=== PATIENT | female | born 1955 | race Caucasian/White ===

== ENCOUNTER → 2017-05-21 | Outpatient (CLI) | payer BC ==
[2017-05-21 10:09] LABS: Basophils % (A) 0 %; CHCM 35.7; Eosinophils # (A) 0.1 k/uL (0-0.7); Eosinophils % (A) 2 %; HCT 41.5 % (34.0-46.0); HDW 3.01; HGB 14.7 gm/dL (11.4-16.0); Luc # (Auto) 0.06; Luc % (Auto) 1; Lymphocytes % (A) 24 %; MCHC 35.5 g/dL (31.0-37.0); MCV 90.2 fL (80.0-100.0); Mean Platelet Volume 7.8; Monocytes # (A) 0.2 k/uL (0-1.0); Monocytes % (A) 5 %; Neutrophils # (A) 2.8 k/uL (1.3-7.7); Neutrophils % (A) 68 %; RDW 13.6 % (11.5-15.5); WBC 4.1 k/uL (3.8-10.6); WBC (Perox) 3.91
[2017-05-21 14:14] LABS: ALT 26 U/L (9-52); AST 14 U/L (14-36); Alkaline Phosphatase 83 U/L (38-126); Anion Gap 10 mmol/L; Blood Urea Nitrogen 12 mg/dL (7-17); Calcium 9.3 mg/dL (8.4-10.2); Carbon Dioxide 26 mmol/L (22-30); Chloride 105 mmol/L (98-107); Glucose 93 mg/dL (74-99); Non-African American GFR(MDRD) >60 (>60 ml/min/1.73 sqM); Potassium 4.5 mmol/L (3.5-5.1); Sodium 141 mmol/L (137-145); Total Bilirubin 0.4 mg/dL (0.2-1.3); Total Protein 6.8 g/dL (6.3-8.2)
[2017-05-21 14:56] LABS: Estradiol 14 pg/mL
[2017-05-21 15:11] LABS: Vitamin B12 953 pg/mL (239-931)
[2017-05-21 15:29] LABS: Sex Hormone Binding Globulin 55.4 nmol/L (18.0-166.0)
[2017-05-21 15:33] LABS: Testosterone, Bioavailable 14.1 ng/dL (1.2-15.0); Testosterone, Free 0.6 ng/dL (0.04-0.53)
== END | disposition home or self-care (01) ==
LOC: LABWHC1 09:38
PROVIDERS: ATTEND Obstetrics & Gynecology
DX: E55.9 Vitamin D deficiency, unspecified (principal); R53.83 Other fatigue; Z78.0 Asymptomatic menopausal state
CPT/HCPCS: 36415; 80053; 82040; 82306; 82607; 82670; 84270; 84403; 84439; 84443; 84481; 85025

== ENCOUNTER 2017-09-04 19:32 | Observation (INO) | payer BC ==
[2017-09-04] MEDS ORDERED: SODIUM CHLORIDE 0.9% 1,000 ML IV STA (19:55)
--- NOTE | 2017-09-04 20:01 | ED ---
Dizziness HPI - General Chief Complaint: Syncope Stated Complaint: near syncope Time Seen by Provider: 09/04/17 19:49 Source: patient Mode of arrival: EMS Limitations: no limitations - History of Present Illness Initial Comments: Oximetry 2 years old female after finishing her dinner tonight she went to the bathroom when she got back from the bathroom she felt very dizzy and on 12 she fell she is given a pass out but she did not pass out she calls a 911 felt quite shaky and felt heart was racing. She denies any headaches no neck stiffness no chest pain no shortness of breath no abdominal pain no frequency urgency dysuria no symptoms of TIA or CVA - Related Data Home Medications Medication Instructions Recorded Confirmed Biest Topical Cream 1 applic TOPICAL DAILY 09/04/17 09/04/17 Cholecalciferol [Vitamin D3] 1,000 unit PO DAILY 09/04/17 09/04/17 Digestive Enzymes 1 tab PO DAILY 09/04/17 09/04/17 Phytonadione [Vitamin K] 5 mg PO DAILY 09/04/17 09/04/17 Progesterone 150mg 150 mg PO DAILY 09/04/17 09/04/17 Thyroid,Pork [Nature-Throid] 48.75 mg PO DAILY 09/04/17 09/04/17 Allergies Allergy/AdvReac Type Severity Reaction Status Date / Time codeine Allergy Mild Rash/Hives Verified 09/04/17 19:50 Review of Systems ROS Statement: Those systems with pertinent positive or pertinent negative responses have been documented in the HPI. ROS Other: All systems not noted in ROS Statement are negative. Past Medical History Additional Past Medical History / Comment(s): vertigo History of Any Multi-Drug Resistant Organisms: None Reported Past Surgical History: Hernia Repair Past Psychological History: No Psychological Hx Reported Smoking Status: Never smoker Past Alcohol Use History: None Reported Past Drug Use History: None Reported General Exam - General Exam Comments Initial Comments: General: The patient is awake and alert, in no distress, and does not appear acutely ill. GCS is 15 she does look pale and anxious Skin: Skin is warm and dry and no rashes or lesions are noted. Eye: Pupils are equal, round and reactive to light, extra-ocular movements are intact; there is normal conjunctiva bilaterally. Ears, nose, mouth and throat: There are moist mucous membranes and no oral lesions. Neck: The neck is supple, there is no tenderness or JVD. Cardiovascular: There is a regular rate and rhythm. No murmur, rub or gallop is appreciated. Respiratory: To auscultation bilateral, no wheezing no rhonchi no distress respiratory matamoros noticed Gastrointestinal: Soft, non-distended, non-tender abdomen without masses or organomegaly noted. There is no rebound or guarding present. Bowel sounds are unremarkable. Back: There is no tenderness to palpation in the midline. There is no obvious deformity. Musculoskeletal: Normal ROM, no tenderness, There is no pedal edema. There is no calf tenderness or swelling. No cords were appreciated. Neurological: CN II-XII intact, Cranial nerves III through XII are intact. There are no obvious motor or sensory deficits. Coordination appears grossly intact. Speech is normal. Psychiatric: Cooperative, appropriate mood & affect, normal judgment. Limitations: no limitations Course Vital Signs 09/04/17 09/04/17 09/04/17 19:36 20:13 21:20 Temperature 98.1 F Pulse Rate 104 H 101 H 95 Respiratory 16 18 18 Rate Blood Pressure 155/86 153/70 113/53 O2 Sat by Pulse 96 98 98 Oximetry She was reassessed at 2130, head CT is normal so is the troponin urinalysis CBC compressive metabolic panel and I on INR, clinically she is not hasn't improved much she still quite dizzy and unsteady gait she does have history of vertigo for years but she feels this time it's it some more severe considering her clinical picture would like to observe her overnight and a consult neurology will consult Dr. howard ybarra to see her in the meantime we'll monitor her overnight palpation of the family agreed to EKG Findings - EKG Comments: EKG Findings:: EKG is normal sinus rhythm, ventricular rate is 91 NE interval is 168 QRS duration is 80 QT/QTc is 344/02/16/2020 review of this EKG reveals T- wave inversion in lead [address] depression in V3, it looks more like artifact no other ST elevation or ST depression noticed in this EKG noticed a PVC as well Medical Decision Making - Lab Data Result diagrams: 09/04/17 20:10 09/04/17 20:10 Lab Results 09/04/17 09/04/17 09/04/17 Range/Units 20:10 20:10 20:10 WBC 6.8 (3.8-10.6) k/uL RBC 5.06 (3.80-5.40) m/uL Hgb 15.5 (11.4-16.0) gm/dL Hct 44.8 (34.0-46.0) % MCV 88.5 (80.0-100.0) fL MCH 30.7 (25.0-35.0) pg MCHC 34.7 (31.0-37.0) g/dL RDW 14.4 (11.5-15.5) % Plt Count 154 (150-450) k/uL Neutrophils % 72 % Lymphocytes % 22 % Monocytes % 4 % Eosinophils % 1 % Basophils % 0 % Neutrophils # 4.9 (1.3-7.7) k/uL Lymphocytes # 1.5 (1.0-4.8) k/uL Monocytes # 0.3 (0-1.0) k/uL Eosinophils # 0.1 (0-0.7) k/uL Basophils # 0.0 (0-0.2) k/uL PT (9.0-12.0) sec INR (<1.2) APTT (22.0-30.0) sec Sodium 140 (137-145) mmol/L Potassium 4.1 (3.5-5.1) mmol/L Chloride 105 (98-107) mmol/L Carbon Dioxide 25 (22-30) mmol/L Anion Gap 10 mmol/L BUN 15 (7-17) mg/dL Creatinine 0.70 (0.52-1.04) mg/dL Est GFR (MDRD) Af Amer >60 (>60 ml/min/1.73 sqM) Est GFR (MDRD) Non-Af >60 (>60 ml/min/1.73 sqM) Glucose 116 H (74-99) mg/dL Calcium 9.5 (8.4-10.2) mg/dL Total Bilirubin 0.4 (0.2-1.3) mg/dL AST 20 (14-36) U/L ALT 24 (9-52) U/L Alkaline Phosphatase 94 (38-126) U/L Total Creatine Kinase 57 (30-135) U/L CK-MB (CK-2) 0.6 (0.0-2.4) ng/mL CK-MB (CK-2) Rel Index 1.1 Troponin I <0.012 (0.000-0.034) ng/mL Total Protein 7.4 (6.3-8.2) g/dL Albumin 4.6 (3.5-5.0) g/dL Urine Color Urine Appearance (Clear) Urine pH (5.0-8.0) Ur Specific [place] (1.001-1.035) Urine Protein (Negative) Urine Glucose (UA) (Negative) Urine Ketones (Negative) Urine Blood (Negative) Urine Nitrite (Negative) Urine Bilirubin (Negative) Urine Urobilinogen (<2.0) mg/dL Ur Leukocyte Esterase (Negative) Urine RBC (0-5) /hpf Urine WBC (0-5) /hpf Ur Squamous Epith Cells (0-4) /hpf Urine Mucus (None) /hpf 09/04/17 09/04/17 Range/Units 20:10 20:10 WBC (3.8-10.6) k/uL RBC (3.80-5.40) m/uL Hgb (11.4-16.0) gm/dL Hct (34.0-46.0) % MCV (80.0-100.0) fL MCH (25.0-35.0) pg MCHC (31.0-37.0) g/dL RDW (11.5-15.5) % Plt Count (150-450) k/uL Neutrophils % % Lymphocytes % % Monocytes % % Eosinophils % % Basophils % % Neutrophils # (1.3-7.7) k/uL Lymphocytes # (1.0-4.8) k/uL Monocytes # (0-1.0) k/uL Eosinophils # (0-0.7) k/uL Basophils # (0-0.2) k/uL PT 10.4 (9.0-12.0) sec INR 1.0 (<1.2) APTT 24.5 (22.0-30.0) sec Sodium (137-145) mmol/L Potassium (3.5-5.1) mmol/L Chloride (98-107) mmol/L Carbon Dioxide (22-30) mmol/L Anion Gap mmol/L BUN (7-17) mg/dL Creatinine (0.52-1.04) mg/dL Est GFR (MDRD) Af Amer (>60 ml/min/1.73 sqM) Est GFR (MDRD) Non-Af (>60 ml/min/1.73 sqM) Glucose (74-99) mg/dL Calcium (8.4-10.2) mg/dL Total Bilirubin (0.2-1.3) mg/dL AST (14-36) U/L ALT (9-52) U/L Alkaline Phosphatase (38-126) U/L Total Creatine Kinase (30-135) U/L CK-MB (CK-2) (0.0-2.4) ng/mL CK-MB (CK-2) Rel Index Troponin I (0.000-0.034) ng/mL Total Protein (6.3-8.2) g/dL Albumin (3.5-5.0) g/dL Urine Color Yellow Urine Appearance Clear (Clear) Urine pH 5.5 (5.0-8.0) Ur Specific [place] 1.018 (1.001-1.035) Urine Protein Negative (Negative) Urine Glucose (UA) Negative (Negative) Urine Ketones Negative (Negative) Urine Blood Trace H (Negative) Urine Nitrite Negative (Negative) Urine Bilirubin Negative (Negative) Urine Urobilinogen <2.0 (<2.0) mg/dL Ur Leukocyte Esterase Negative (Negative) Urine RBC 1 (0-5) /hpf Urine WBC <1 (0-5) /hpf Ur Squamous Epith Cells 1 (0-4) /hpf Urine Mucus Occasional H (None) /hpf Disposition Clinical Impression: Dizziness Disposition: ADMITTED IP TO THIS HOSP Condition: Good Referrals: Natalie Sommers DO [Primary Care Provider] - 1-2 days
[2017-09-04] MEDS ORDERED: METOCLOPRAMIDE 5 MG/ML 2 ML VIAL IVP STA (20:04)
[2017-09-04 20:23] LABS: Basophils % (A) 0 %; CH 31.2; CHCM 35.4; Eosinophils # (A) 0.1 k/uL (0-0.7); Eosinophils % (A) 1 %; HCT 44.8 % (34.0-46.0); HDW 2.85; HGB 15.5 gm/dL (11.4-16.0); Luc # (Auto) 0.09; Luc % (Auto) 1; Lymphocytes # (A) 1.5 k/uL (1.0-4.8); Lymphocytes % (A) 22 %; MCH 30.7 pg (25.0-35.0); MCHC 34.7 g/dL (31.0-37.0); MCV 88.5 fL (80.0-100.0); Mean Platelet Volume 7.4; Monocytes # (A) 0.3 k/uL (0-1.0); Monocytes % (A) 4 %; Neutrophils # (A) 4.9 k/uL (1.3-7.7); Neutrophils % (A) 72 %; RBC 5.06 m/uL (3.80-5.40); RDW 14.4 % (11.5-15.5); WBC 6.8 k/uL (3.8-10.6); WBC (Perox) 6.94
[2017-09-04 20:26] LABS: Appearance,Urine Clear (Clear); Bilirubin,Urine Negative (Negative); Glucose,Urine (UA) Negative (Negative); Ketones,Urine Negative (Negative); Leukocyte Esterase,Urine Negative (Negative); Mucus,Urine Occasional /hpf; Nitrite,Urine Negative (Negative); PH, Urine 5.5 (5.0-8.0); Particle Count 3507; Protein,Urine Negative (Negative); RBC,Urine 1 /hpf (0-5); Specific Gravity,Urine 1.018 (1.001-1.035); Squamous Epithelial Cell,Urine 1 /hpf (0-4); UA Billing (MACRO vs. MICRO) MICRO; Urobilinogen,Urine <2.0 mg/dL (<2.0); WBC,Urine <1 /hpf (0-5)
[2017-09-04 20:32] LABS: Partial Thromboplastin Time 24.5 sec (22.0-30.0); Prothrombin Time 10.4 sec (9.0-12.0)
[2017-09-04 20:36] LABS: ALT 24 U/L (9-52); AST 20 U/L (14-36); Alkaline Phosphatase 94 U/L (38-126); Anion Gap 10 mmol/L; Blood Urea Nitrogen 15 mg/dL (7-17); Calcium 9.5 mg/dL (8.4-10.2); Carbon Dioxide 25 mmol/L (22-30); Chloride 105 mmol/L (98-107); Glucose 116 mg/dL (74-99); Non-African American GFR(MDRD) >60 (>60 ml/min/1.73 sqM); Potassium 4.1 mmol/L (3.5-5.1); Sodium 140 mmol/L (137-145); Total Bilirubin 0.4 mg/dL (0.2-1.3); Total Protein 7.4 g/dL (6.3-8.2)
[2017-09-04 20:39] LABS: Creatine Kinase 57 U/L (30-135)
[2017-09-04 20:52] LABS: Troponin I <0.012 ng/mL (0.000-0.034)
--- NOTE | 2017-09-04 21:08 | CT ---
EXAMINATION TYPE: CT brain wo con DATE OF EXAM: 09/04/2017 COMPARISON: NONE HISTORY: Dizziness. CT DLP: [address] of the brain was performed. The ventricles, basal cisterns and sulci overlying the cerebral convexities demonstrate mild enlargem ent. There is no evidence for intracranial hemorrhage or sulcal effacement. There is decreased attenuation about the periventricular white matter and deep white matter of both c erebral hemispheres, compatible with chronic small vessel ischemia. Differential diagnosis does inclu de demyelination. No mass effects are seen.No midline shift. Osseous calvarium is intact. If symptoms persist consider MRI. IMPRESSION: 1. Age related atrophic and chronic small vessel ischemic change without acute intracranial process s een at this time.
--- NOTE | 2017-09-04 21:13 | XR ---
EXAMINATION TYPE: XR chest 2V DATE OF EXAM: 09/04/2017 COMPARISON: NONE HISTORY: Shortness of breath TECHNIQUE: Frontal and lateral views of the chest are obtained. FINDINGS: Scattered senescent parenchymal changes noted. Hyperinflation compatible with COPD. No evidence for infiltrate. No evidence for atelectasis. Heart size is stable. Mediastinal structures are stable and grossly unremarkable. No evidence for hilar prominence. Degenerative changes dorsal spine. IMPRESSION: 1. No evidence for acute pulmonary disease.
[2017-09-04 21:21] LABS: Creatine Kinase MB 0.6 ng/mL (0.0-2.4)
[2017-09-04] MEDS ORDERED: ACETAMINOPHEN TAB 325 MG TAB PO PRN (21:33)
[2017-09-04] MEDS ORDERED: NALOXONE 0.4 MG/ML 1 ML VIAL IV PRN (21:33)
[2017-09-04] MEDS ORDERED: ASPIRIN 81 MG PO STA (21:46)
[2017-09-04] MEDS ORDERED: MECLIZINE 25 MG TAB PO PRN (21:47)
[2017-09-04] MEDS ORDERED: MECLIZINE 25 MG TAB PO STA (21:47)
[2017-09-04 22:45] VITALS: BMI 20.9
[2017-09-05] MEDS ORDERED: DIGESTIVE ENZYMES PO SCH (09:00)
[2017-09-05] MEDS: THYROID PORK 48.75 MG PO SCH (11:36)
[2017-09-05] MEDS: BIEST TOPICAL SCH (11:36)
[2017-09-05] MEDS: CHOLECALCIFEROL 1,000 UNIT TAB PO SCH (12:30)
--- NOTE | 2017-09-05 16:32 | HP ---
HISTORY AND PHYSICAL DATE OF ADMISSION: 09/05/2017 CHIEF COMPLAINT: Altered mental status and dizziness. HISTORY OF PRESENT ILLNESS: This is a 62-year-old female with past medical history of mercury poisoning, benign positional vertigo, MTHFR gene mutation and diverticulosis, who presents to the emergency room after having an episode of vertigo, dizziness, altered mental status and ataxic gait that came on suddenly. The patient said that she was out having dinner with her . She was eating whitefish. After consuming her meal, the patient had gotten up to go to the restroom and as she was in the restroom, the patient was washing her hands and noticed that she was leaning over to the left side. She became suddenly dizzy in which she described the room was spinning around her. The patient does have a history of benign positional vertigo and states that this vertigo was different than all the rest of them that she has experienced in the past. She immediately came out in the parking lot. She had to ask her to help her walk, as she was leaning. He had to support her and he brought her into the emergency room for further evaluation. Per the family members who were at bedside, the patient's mentation was also altered. She was noted to be repeating herself many times over. She showed signs of confusion. The patient did not recall texting her friend yesterday after she learned that she had been texting people last night. The patient states that she had recently got multiple dental work done at a homeopathic dentist using dental fillings that are high in mercury. The patient is known to have high mercury level and was recommended and advised for chelation therapy which the patient was supposed to have done 3 weeks ago. However, she decided on more conservative management with and supplementations. The patient was seen at the bedside. Daughter was at bedside, states that her mentation this morning is more at her baseline. The patient does not remember much of the events of the day prior after dinner. The patient denied having any tingling or numbness in her fingers or extremities. She denied any headaches. She denied any changes in her vision or hearing. The patient had no change in the quality of her speech. Patient did not exhibit any unilateral weakness. She denies any chest pain or shortness of breath. When examined at the bedside, the patient's symptoms have all resolved. PAST MEDICAL HISTORY: 1. Benign positional vertigo. 2. Mercury poisoning. 3. MTHFR gene mutation. 4. Diverticulosis. PAST SURGICAL HISTORY: 1. D and C. 2. Hiatal hernia repair. 3. Multiple dental caries with wisdom teeth extraction. FAMILY HISTORY: MTHFR gene mutation, coronary artery disease in her parents, cardiovascular artery disease. Mom had a stroke at 42, also diabetic. ALLERGIES: PATIENT IS ALLERGIC TO CODEINE AND TALWIN. HOME MEDICATIONS: 1. Acetaminophen 650 every 6 hours as needed. 2. Calciferol. 3. Vitamin D3 1000 units. 4. Meclizine 25 mg p.o. t.i.d. p.r.n. 5. Reglan. 6. She is Nature Throid 48.75. 7. She is on progesterone 150 mg p.o. daily. 8. She is on vitamin K 5 mg daily. 9. She is on estradiol. SOCIAL HISTORY: The patient has never smoked. Denies any alcohol use or any IV drug abuse. The patient is retired for the past 2 years. REVIEW OF SYSTEMS: Except as mentioned above, all systems are reviewed and are negative. PHYSICAL EXAM: OBJECTIVE: VITAL SIGNS: The patient's temperature 98.3, pulse 79, respirations 16, blood pressure 110/59, oxygen saturation 97% on room air. GENERAL: This is a 62-year-old female who is awake, alert, oriented x3. No acute distress. Nontoxic. She is calm and cooperative. SKIN: [place], warm, and dry. HEENT: She is normocephalic, atraumatic. Pupils are equal, round, reactive to light. There is a slight discoloration of her iris bilaterally with brown pigmentation overlying blue hue. Sclerae are pink. Conjunctivae white. Extraocular muscles are intact. NECK: Supple. No lymphadenopathy. Trachea midline. CARDIOVASCULAR: Regular rate and rhythm. No murmurs, rubs or gallops. No carotid bruits. No lower extremity edema. RESPIRATION: Clear to auscultation bilaterally. No wheezing, rales or rhonchi. Symmetric chest wall expansion. No use of accessory muscle respiration. GI: Abdomen soft, nontender, nondistended. Positive bowel sounds in all 4 quadrants. MUSCULOSKELETAL: Patient moves all extremities with equal strength and good range of motion, 5/5. No observed effusions or joint enlargements. NEUROLOGICAL: Cranial nerves 2-12 grossly intact. No focal deficits. Face is symmetrical and clear. No droop. No dysarthria. PSYCHIATRIC: There is no depression or anxiety noted. LABORATORY DATA: White count 6.8, hemoglobin 15.5, hematocrit 44.8, platelets 154. Chem: Sodium 140, potassium 4.1, chloride 105, carbon dioxide 25, glucose 116. IMPRESSION: 1. Dizziness and vertigo with altered mental status. 2. Mercury poisoning. 3. Recent exposure to mercury. 4. Postmenopausal state. 5. History of migraines. 6. History of benign positional vertigo. 7. History of migraines. PLAN: Patient to remain on observation unit. The patient is pending evaluation by Neurology. The patient should pursue chelation therapy; however, mercury levels should be obtained prior hand. Patient to remain a fall risk. Continue with cardiac diet. The patient to have orthostatics q. shift. The patient to initiate DVT and GI prophylaxis as per protocol. She will continue home medications. Continue with antiemetics. Further recommendations to follow, pending interval progress. Patient's limited laboratory data in the morning will be checked to include a TSH. MMODL / IJN: [id number] /
[2017-09-05] MEDS ORDERED: ALPRAZolam 0.25 MG TAB PO STA (18:41)
--- NOTE | 2017-09-05 19:17 | P.CNNES ---
History of Present Illness Consult date: 09/05/17 History of Present Illness: The patient is a 62-year-old right-handed white female with a long-standing history of positional vertigo. She states she suffered from positional vertigo all of her adult life. She states that what happened yesterday was different from her usual vertigo. She states she felt a lightheadedness but no vertigo. She was at a restaurant and was going to the restroom and after coming out and walking out of the restroom she felt lightheadedness and she felt like she was got a past out. She told her and he had to hold her. He got her eventually to the car and she told him to call 911. She states she felt fogginess in her thinking wasn't as clear. She was brought by EMS to the hospital and by the time she got into the EMS van her lightheadedness that resolved but she felt a slowness in her cognitive abilities. That lasted for about 3 hours. She reports that she is felt that she has been dehydrated. She hasn't been drinking water as much as been drinking more coffee. She states that she is on numerous some supplements and there is no change in her medications or supplements. Patient denies any neurologic complaints such as double vision focal weakness or numbness or's spell loss of speech. She reports that she has seen in homeopathic doctor and that she is reportedly has high levels of movement metal in her body. She was supposed to have Chelation therapy several weeks ago. The patient feels back to her baseline now. Review of Systems Constitutional: Denies chills, Denies fever Eyes: denies blurred vision, denies pain Cardiovascular: Denies chest pain, Denies shortness of breath Respiratory: Denies cough Musculoskeletal: Denies myalgias Neurological: Denies numbness, Denies weakness Psychiatric: Denies anxiety, Denies depression Past Medical History Past Medical History: Thyroid Disorder Additional Past Medical History / Comment(s): vertigo, ARRYTHMIA DURING A SURGICAL PROCEDURE, LOW THYROID, DIVERTICULOUSIS History of Any Multi-Drug Resistant Organisms: None Reported Past Surgical History: Hernia Repair Additional Past Surgical History / Comment(s): 5 D&C, HERNIA REPAIR , STRESS TEST 3-4 YEARS AGO IT WAS NORMAL, Past Psychological History: No Psychological Hx Reported Smoking Status: Never smoker Past Alcohol Use History: None Reported Past Drug Use History: None Reported - Past Family History Mother Family Medical History: Hypertension Additional Family Medical History / Comment(s): STROKE HTN, SKIN CA, HEART MURMER Father Family Medical History: Hypertension Additional Family Medical History / Comment(s): DIVERTICULOUSIS, Brother(s) Family Medical History: Diabetes Mellitus Additional Family Medical History / Comment(s): ALL HER BROTHERS AND SISITERS HAVE DIABETES, BROTHER HAS HEART CONDITION, Medications and Allergies Home Medications Medication Instructions Recorded Confirmed Type ALPRAZolam [Xanax] 1 mg PO TID PRN 09/04/17 09/04/17 History Biest Topical Cream 1 applic TOPICAL DAILY 09/04/17 09/04/17 History Digestive Enzymes 1 tab PO DAILY 09/04/17 09/04/17 History Progesterone 150mg 150 mg PO DAILY 09/04/17 09/04/17 History Thyroid,Pork [Nature-Throid] 48.75 mg PO DAILY 09/04/17 09/04/17 History Allergies Allergy/AdvReac Type Severity Reaction Status Date / Time codeine Allergy Mild Rash/Hives Verified 09/04/17 19:50 TALWIN AdvReac Hallucinati Uncoded 09/04/17 22:52 ons Physical Examination - Vital Signs Vital Signs: Vital Signs Temp Pulse Pulse Resp BP BP Pulse Ox 09/05/17 15:27 98.7 F 70 16 136/62 97 09/05/17 12:00 98.3 F 79 16 110/59 97 09/05/17 08:00 98.6 F 80 16 115/59 97 09/05/17 07:40 100 09/05/17 04:50 98.1 F 90 18 123/57 97 09/05/17 00:34 98.4 F 102 H 16 145/71 09/04/17 22:01 99.1 F 09/04/17 21:49 18 09/04/17 21:20 95 18 113/53 98 09/04/17 20:13 101 H 18 153/70 98 09/04/17 19:36 98.1 F 104 H 16 155/86 96 Intake and Output 09/05/17 09/05/17 09/05/17 06:59 14:59 22:59 Intake Total 236 Balance 236 Intake: Oral 236 Other: Voiding Method Toilet Toilet - Constitutional General appearance: average body habitus - EENT EENT: PERRL, hearing intact, vision intact - Respiratory Respiratory: lungs clear - Cardiovascular Cardiovascular: regular rate - Neurologic Mental status: She was awake alert and oriented . She answered questions appropriately there was no a aphasia or dysarthria. Cranial nerve examination: PERRL, EOMI, VFF, face symmetric, tongue midline, intact Speech examination: intact Detailed motor examination: grossly full strength in all extremities - Psychiatric Psychiatric: mood/affect appropriate Results - Laboratory Findings CBC and BMP: 09/04/17 20:10 09/04/17 20:10 Abnormal Lab Findings: Abnormal Labs 09/04/17 09/04/17 20:10 20:10 Glucose 116 H Urine Blood Trace H Urine Mucus Occasional H Assessment and Plan (1) Pre-syncope Current Visit: Yes Status: Acute SNOMED Code(s): 898967112 (2) Dizziness Current Visit: Yes Status: Acute SNOMED Code(s): 714946842 Plan: The patient is a 62-year-old woman with history of benign positional vertigo presents to the hospital with dizziness and near syncope. Her neurologic examination is nonfocal. She had a CT of the brain which showed age-related atrophy. Recommend further testing with carotid ultrasound and echocardiogram. Her near syncope may have been vasovagal.
[2017-09-05 19:57] VITALS: RESP 18
--- NOTE | 2017-09-05 21:44 | US ---
EXAMINATION TYPE: US carotid duplex BILAT DATE OF EXAM: 09/05/2017 COMPARISON: NONE CLINICAL HISTORY: Presyncope. Dizziness EXAM MEASUREMENTS: RIGHT: Peak Systolic Velocity (PSV) cm/sec ----- Right CCA: 75.7 ----- Right ICA: 102.1 ----- Right ECA: 109.7 ICA/CCA ratio: 1.3 RIGHT: End Diastole cm/sec ----- Right CCA: 15.3 ----- Right ICA: 8.9 ----- Right ECA: 0 LEFT: Peak Systolic Velocity (PSV) cm/sec ----- Left CCA: 70.7 ----- Left ICA: 95.1 ----- Left ECA: 96.9 ICA/CCA ratio: 1.3 LEFT: End Diastole cm/sec ----- Left CCA: 15.6 ----- Left ICA: 17.6 ----- Left ECA: 11.5 VERTEBRALS (direction of flow): Right Vertebral: Antegrade Left Vertebral: Antegrade Rhythm: Normal No significant stenosis seen IMPRESSION: There is antegrade flow in the vertebral arteries. The images and measurements suggest 2 5-40% stenosis in both internal carotid arteries. Criteria for Assigning % of Stenosis / Diameter reduction (Estimation based on the indirect measurements of the internal carotid artery velocities (ICA PSV). 1. Normal (no stenosis)=ICA PSV < 125 cm/s: ratio < 2.0: ICA EDV<40 cm/s. 2. Less than 50% stenosis=ICA PSV < 125 cm/s: ratio < 2.0: ICA EDV<40 cm/s. 3. 50 to 69% stenosis=ICA PSV of 125 to 230 cm/s: ration 2.0 ? 4.0: ICA EDV 40-100 cm/s. 4. Greater than 70% stenosis to near occlusion= ICA PSV > 230 cm/s: ratio > 4.0: ICA EDV > 100 cm/s. 5. Near occlusion= ICA PSV velocities may be low or undetectable: variable ratio and ICA EDV. 6. Total occlusion=unable to detect flow.
[2017-09-06 06:58] LABS: Basophils % (A) 1 %; CH 31.5; CHCM 34.9; Eosinophils # (A) 0.1 k/uL (0-0.7); Eosinophils % (A) 3 %; HCT 41.3 % (34.0-46.0); HDW 3.04; HGB 13.8 gm/dL (11.4-16.0); Luc # (Auto) 0.05; Luc % (Auto) 1; Lymphocytes # (A) 1.1 k/uL (1.0-4.8); Lymphocytes % (A) 30 %; MCH 30.2 pg (25.0-35.0); MCHC 33.3 g/dL (31.0-37.0); MCV 90.7 fL (80.0-100.0); Mean Platelet Volume 6.8; Monocytes # (A) 0.2 k/uL (0-1.0); Monocytes % (A) 6 %; Neutrophils # (A) 2.2 k/uL (1.3-7.7); Neutrophils % (A) 60 %; RBC 4.55 m/uL (3.80-5.40); RDW 12.8 % (11.5-15.5); WBC 3.7 k/uL (3.8-10.6); WBC (Perox) 3.62
[2017-09-06 07:11] LABS: Anion Gap 6 mmol/L; Blood Urea Nitrogen 13 mg/dL (7-17); Calcium 9.1 mg/dL (8.4-10.2); Carbon Dioxide 28 mmol/L (22-30); Chloride 108 mmol/L (98-107); Glucose 88 mg/dL (74-99); Magnesium 1.9 mg/dL (1.6-2.3); Non-African American GFR(MDRD) >60 (>60 ml/min/1.73 sqM); Potassium 4.3 mmol/L (3.5-5.1); Sodium 142 mmol/L (137-145)
[2017-09-06] MEDS: BIEST TOPICAL SCH (08:39)
[2017-09-06] MEDS: THYROID PORK 48.75 MG PO SCH (08:39)
[2017-09-06 11:38] VITALS: TEMP 98.1
[2017-09-06] MEDS: CHOLECALCIFEROL 1,000 UNIT TAB PO SCH (12:24)
--- NOTE | 2017-09-06 12:37 | ECHOF ---
Referral Reason:presyncope MEASUREMENTS -------- HEIGHT: 162.6 cm WEIGHT: 86.2 kg BP: RVIDd: 2.3 cm (< 3.3) IVSd: 1.0 cm (0.6 - 1.1) LVIDd: 4.0 cm (3.9 - 5.3) LVPWd: 0.9 cm (0.6 - 1.1) IVSs: 1.2 cm LVIDs: 3.1 cm LVPWs: 1.0 cm LA Diam: 1.9 cm (2.7 - 3.8) Ao Diam: 2.9 cm (2.0 - 3.7) AV Cusp: 1.9 cm (1.5 - 2.6) LA Diam: 3.0 cm (2.7 - 3.8) MV EXCURSION: 13.536 mm (> 18.000) MV EF SLOPE: 90 mm/s (70 - 150) EPSS: 0.3 cm MV E Jose: 0.96 m/s MV DecT: 142 ms MV A Jose: 0.25 m/s MV E/A Ratio: 3.86 RAP: 5.00 mmHg RVSP: 12.14 mmHg FINDINGS -------- Sinus rhythm. This was a technically adequate study. LV size, wall thickness and systolic function are normal, with an EF greater than 55%. The left joseph tricular size is normal. The right ventricle is normal in size. Normal LA size by volume 22+/-6 ml/m2. The right atrial size is normal. The aortic valve is trileaflet, and appears structurally normal. No aortic stenosis or regurgitation. The mitral valve is normal. Mild mitral regurgitation is present. Mild tricuspid regurgitation present. There is no evidence of pulmonary hypertension. The right v entricular systolic pressure, as measured by Doppler, is 12.14mmHg. The pulmonic valve was not well visualized. There is no pulmonic regurgitation present. There is no pericardial effusion. CONCLUSIONS -------- 1. Sinus rhythm. 2. This was a technically adequate study. 3. LV size, wall thickness and systolic function are normal, with an EF greater than 55%. 4. Normal LA size by volume 22+/-6 ml/m2. 5. The aortic valve is trileaflet, and appears structurally normal. No aortic stenosis or regurgitati on. 6. Mild mitral regurgitation is present. 7. Mild tricuspid regurgitation present. 8. There is no evidence of pulmonary hypertension. 9. The pulmonic valve was not well visualized. 10. There is no pulmonic regurgitation present. 11. There is no pericardial effusion. SLASHER TENDER: Laureen Munoz RDCS
[2017-09-06 13:02] VITALS: BP 146/78; PULSE 73
--- NOTE | 2017-09-06 13:51 | DS ---
DISCHARGE SUMMARY DATE OF ADMISSION: 09/05/2017. DATE OF DISCHARGE: 09/06/2017. DATE OF SERVICE: 09/06/2017. DISCHARGE DIAGNOSIS: 1. Near syncope, vasovagal. 2. Dizziness and vertigo with altered mental status. 3. Recent exposure to Mercury. 4. History of mercury poisoning. 5. Postmenopausal state. Consultation neurology. PROCEDURES: The patient had a 2D echocardiogram along with the carotid Doppler studies. Chest x- ray as well. BRIEF HOSPITAL COURSE: This is a 65-year-old female with a past medical history of Mercury poisoning, benign positional vertigo. MTHFR gene mutation, diverticulosis, present emergency room after having episode of vertigo, dizziness, altered mental status, and near syncope. The patient describes having gait ataxia after having dinner with her at a restaurant. The patient was eating white fish. The patient experienced dizziness vertigo in the past. She has benign positional vertigo chronically. However, patient stated that this vertigo and dizziness was unlike the ones that are known to her. The patient was noted to be confused, repeating herself, repeating comments as she is not known to be never a confused state. The patient was brought to the emergency room for further evaluation. In the ER. Patient's vital signs were noted to be within normal limits. Patient denies any gross abnormalities on labs. Patient when re-evaluated is stable. Patient did have echocardiogram noted essentially within normal limits. Patient also had a carotid Doppler study which did not show any focal stenosis or flow limiting lesions. The patient was seen and evaluated by Neurology who stated that the syncope may be vasovagal in nature. The patient was instructed to follow up with primary care physician for further workup. The patient has known scheduled to be taking chelation therapy for high mercury level and she was supposed to have done that 3 weeks ago, however, patient is reluctant to start in chelation therapy. The patient was instructed to follow up with her primary care physician for further discussion. She was instructed that further mercury poisoning could lead to detrimental effects of her health. She acknowledged. While in the hospital, patient did not have any recurrence of her symptoms. The patient's orthostatics were negative. On day of discharge, patient did not complain of chest pain or shortness of breath. No lightheadedness. There is no fevers or chills. No cough. No constipation or diarrhea. The patient was discharged home in stable condition. Discharge follow up with primary care physician in 10-14 days. Discharge diet patient to resume diet as tolerated. DISCHARGE MEDICATIONS: Resume all home medications. No addition or modifications. DISCHARGE DISPOSITION: Patient discharged home in overall good health. MMODL / IJN: [id number] /
== END 2017-09-06 13:23 | disposition home or self-care (01) ==
LOC: EC 19:32 → 3OBS 21:33
PROVIDERS: ADMIT Hospitalist; ATTEND Hospitalist
DX: R55 Syncope and collapse (principal); H81.10 Benign paroxysmal vertigo, unspecified ear; E72.12 Methylenetetrahydrofolate reductase deficiency; K57.90 Diverticulosis of intestine, part unspecified, without perforation or abscess without bleeding; G43.909 Migraine, unspecified, not intractable, without status migrainosus; E03.9 Hypothyroidism, unspecified; T75.89XA Other specified effects of external causes, initial encounter; Z79.899 Other long term (current) drug therapy; Z79.890 Hormone replacement therapy; Z88.5 Allergy status to narcotic agent; Z82.49 Family history of ischemic heart disease and other diseases of the circulatory system; Z82.3 Family history of stroke; Z78.0 Asymptomatic menopausal state
CPT/HCPCS: 96360; 96361; 99285; 36415; 94760; 93005; 93306; 80053; 80048; 82550; 82553; 83735; 84100; 84484 ×2; 85025 ×2; 85610; 85730; 81001; 83825; 71020; 93880; 70450; G0378 ×3

== ENCOUNTER → 2018-07-25 | Outpatient (CLI) | payer BC ==
[2018-07-25 13:22] LABS: Basophils % (A) 1 %; Eosinophils # (A) 0.1 k/uL (0-0.7); Eosinophils % (A) 2 %; HCT 43.3 % (34.0-46.0); HGB 14.5 gm/dL (11.4-16.0); Lymphocytes # (A) 1.1 k/uL (1.0-4.8); Lymphocytes % (A) 20 %; MCH 30.2 pg (25.0-35.0); MCHC 33.4 g/dL (31.0-37.0); MCV 90.2 fL (80.0-100.0); Mean Platelet Volume 6.8; Monocytes # (A) 0.3 k/uL (0-1.0); Monocytes % (A) 5 %; Neutrophils # (A) 3.9 k/uL (1.3-7.7); Neutrophils % (A) 72 %; Platelet Count 143 k/uL (150-450); RDW 12.9 % (11.5-15.5); WBC 5.4 k/uL (3.8-10.6)
[2018-07-25 13:42] LABS: ALT 20 U/L (9-52); AST 14 U/L (14-36); Albumin 4.3 g/dL (3.5-5.0); Alkaline Phosphatase 84 U/L (38-126); Anion Gap 9 mmol/L; Blood Urea Nitrogen 16 mg/dL (7-17); Calcium 9.4 mg/dL (8.4-10.2); Carbon Dioxide 27 mmol/L (22-30); Chloride 104 mmol/L (98-107); Cholesterol 175 mg/dL (<200); Glucose 93 mg/dL (74-99); HDL Cholesterol 53 mg/dL (40-60); LDL Cholesterol,Calculated 103 mg/dL (0-99); Potassium 4.2 mmol/L (3.5-5.1); Sodium 140 mmol/L (137-145); Total Bilirubin 0.5 mg/dL (0.2-1.3); Triglycerides 93 mg/dL (<150)
[2018-07-25 13:57] LABS: T4, Free (Free Thyroxine) 0.77 ng/dL (0.78-2.19)
[2018-07-25 18:41] LABS: Vitamin D 25 Hydroxy 36.9 ng/mL (30.0-100.0)
== END | disposition home or self-care (01) ==
LOC: LABWHC1 11:59
PROVIDERS: ATTEND Obstetrics & Gynecology
DX: Z00.00 Encounter for general adult medical examination without abnormal findings (principal); E03.9 Hypothyroidism, unspecified; R53.83 Other fatigue; E55.9 Vitamin D deficiency, unspecified
CPT/HCPCS: 36415; 80053; 80061; 81241; 82306; 82607; 83090; 84439; 84443; 84481; 85025

== ENCOUNTER → 2019-01-16 | Outpatient (CLI) | payer BC, OTHER ==
--- NOTE | 2019-01-16 09:57 | MM ---
Reason for exam: additional evaluation requested from prior study. Last mammogram was performed 2 years and 4 months ago. History: Patient is postmenopausal. Taking estrogen for 5 years. Taking progesterone for 5 years 2 months. Took other hormone for 5 years. Physical Findings: Nurse did not find any significant physical abnormalities on exam. MG Diagnostic Mammo w CAD ALIX Bilateral CC and MLO view(s) were taken. Prior study comparison: September 06, 2016, bilateral MG diagnostic mammo w CAD ALIX. July 19, 2011, CAD bilateral diagnostic mammogram. The breast tissue is heterogeneously dense. This may lower the sensitivity of mammography. No significant new findings when compared with previous films. These results were verbally communicated with the patient and result sheet given to the patient on 01/16/19. ASSESSMENT: Negative, BI-RAD 1 RECOMMENDATION: Routine screening mammogram of both breasts in 1 year.
--- NOTE | 2019-01-16 10:12 | USB ---
Reason for exam: additional evaluation requested from prior study. History: Patient is postmenopausal. Taking estrogen for 5 years. Taking progesterone for 5 years 2 months. Took other hormone for 5 years. US Breast BILAT Right complete breast ultrasound includes all four quadrants, the retroareolar region and axilla. Finding demonstrates a 0.5 x 0.4 x 0.5cm mixed lesion at 8 o'clock, possibly solid and located along a duct, not seen previously, biopsy recommended and a 0.2 x 0.2 x 0.2cm lesion too small to characterize at 10 o'clock, stable from 2016, probably cystic. Left complete breast ultrasound includes all four quadrants, the retroareolar region and axilla. Finding is negative. These results were verbally communicated with the patient and result sheet given to the patient on 01/16/19. ASSESSMENT: Suspicious, BI-RAD 4 RECOMMENDATION: Surgical consultation and ultrasound core biopsy of the right breast. (8 o'clock) Called Dr. Schroeder with mammographic findings and has scheduled an appointment for the patient for 01/22/19 at 10:30 with Tim Florian NP. Patient to see Dr. Marcus Stokes for surgical consultation, office will call patient. PRELIMINARY REPORT CALLED AND FAXED TO DR. SCHROEDER, DR. STOKES AND TIM FLORIAN NP ON 01/16/19.
== END ==
LOC: RADMAMWWP 07:43
PROVIDERS: ATTEND Family Medicine
DX: R92.8 Other abnormal and inconclusive findings on diagnostic imaging of breast (principal)
CPT/HCPCS: 77066

== ENCOUNTER 2020-07-10 08:14 | Observation (INO) | payer OTHER ==
[2020-07-10] MEDS ORDERED: ASPIRIN 81 MG PO STA (08:37)
[2020-07-10 08:50] LABS: Basophils # (A) 0.1 k/uL (0-0.2); Basophils % (A) 1 %; Eosinophils # (A) 0.1 k/uL (0-0.7); Eosinophils % (A) 2 %; HCT 42.9 % (34.0-46.0); HGB 14.8 gm/dL (11.4-16.0); Lymphocytes # (A) 1.1 k/uL (1.0-4.8); Lymphocytes % (A) 20 %; MCH 30.1 pg (25.0-35.0); MCHC 34.4 g/dL (31.0-37.0); MCV 87.6 fL (80.0-100.0); Mean Platelet Volume 7.1; Monocytes # (A) 0.3 k/uL (0-1.0); Monocytes % (A) 5 %; Neutrophils # (A) 3.8 k/uL (1.3-7.7); Neutrophils % (A) 71 %; Platelet Count 139 k/uL (150-450); RDW 13.4 % (11.5-15.5); WBC 5.3 k/uL (3.8-10.6)
--- NOTE | 2020-07-10 08:57 | ED ---
Chest Pain HPI - General Chief Complaint: Chest Pain Stated Complaint: chest pain Time Seen by Provider: 07/10/20 08:25 Source: patient, RN notes reviewed Mode of arrival: wheelchair Limitations: no limitations - History of Present Illness Initial Comments: This is a 65-year-old female presents emergency Department chief complaint of chest pain. Patient states she had an episode this morning where she felt burning pressure-type symptom in her centralized chest. Patient states she had some back discomfort and shortness breath at that time. Patient states symptoms have resolved. She doesn't with that she's had a history anxiety and pain. This is much different and much different than reflux. Patient states that she had some arrhythmia issues after a D&C in which she was evaluated at that time at [place]. Patient denies any history of hyperlipidemia, diabetes, hypertension. She has no lung disease noted. Patient has no complaints of n ausea or diaphoresis. No history of PE or DVT. - Related Data Home Medications Medication Instructions Recorded Confirmed ALPRAZolam [Xanax] 1 mg PO TID PRN 09/04/17 09/04/17 Biest Topical Cream 1 applic TOPICAL DAILY 09/04/17 09/04/17 Digestive Enzymes 1 tab PO DAILY 09/04/17 09/04/17 Progesterone 150mg 150 mg PO DAILY 09/04/17 09/04/17 Thyroid,Pork [Nature-Throid] 48.75 mg PO DAILY 09/04/17 09/04/17 Allergies Allergy/AdvReac Type Severity Reaction Status Date / Time codeine Allergy Mild Rash/Hives Verified 07/10/20 08:20 garlic Allergy Rash/Hives Verified 07/10/20 08:20 TALWIN AdvReac Hallucinati Uncoded 07/10/20 08:20 ons Review of Systems ROS Statement: Those systems with pertinent positive or pertinent negative responses have been documented in the HPI. ROS Other: All systems not noted in ROS Statement are negative. EKG Findings - EKG Comments: EKG Findings:: EKG performed at 18:28 sinus tachycardia rate of 102 [place] 196 QRS 82 QT/QTC 342/445 Past Medical History Past Medical History: Thyroid Disorder Additional Past Medical History / Comment(s): vertigo, ARRYTHMIA DURING A SURGICAL PROCEDURE, LOW THYROID, DIVERTICULOUSIS History of Any Multi-Drug Resistant Organisms: None Reported Past Surgical History: Hernia Repair Additional Past Surgical History / Comment(s): 5 D&C, HERNIA REPAIR ', STRESS TEST 3-4 YEARS AGO IT WAS NORMAL, Past Psychological History: Anxiety Smoking Status: Never smoker Past Alcohol Use History: None Reported Past Drug Use History: None Reported - Past Family History Mother Family Medical History: Hypertension Additional Family Medical History / Comment(s): STROKE HTN, SKIN CA, HEART MURMER Father Family Medical History: Hypertension Additional Family Medical History / Comment(s): DIVERTICULOUSIS, Brother(s) Family Medical History: Diabetes Mellitus Additional Family Medical History / Comment(s): ALL HER BROTHERS AND SISITERS HAVE DIABETES, BROTHER HAS HEART CONDITION, General Exam Limitations: no limitations General appearance: alert, in no apparent distress Head exam: Present: atraumatic, normocephalic, normal inspection Neck exam: Present: normal inspection, full ROM. Absent: tenderness, meningismus, lymphadenopathy Respiratory exam: Present: normal lung sounds bilaterally. Absent: respiratory distress, wheezes, rales, rhonchi, stridor Cardiovascular Exam: Present: regular rate, normal rhythm, normal heart sounds. Absent: systolic murmur, diastolic murmur, rubs, gallop, clicks GI/Abdominal exam: Present: soft, normal bowel sounds. Absent: distended, tenderness, guarding, rebound, rigid Back exam: Absent: CVA tenderness (R), CVA tenderness (L) Neurological exam: Present: alert, oriented X3, CN II-XII intact Skin exam: Present: warm, dry, intact, normal color. Absent: rash Course Vital Signs 07/10/20 07/10/20 07/10/20 08:17 08:25 09:00 Temperature 98.2 F Pulse Rate 96 99 Pulse Rate [ 97 Right Pulse Oximetery] Respiratory 16 18 Rate Blood Pressure 151/88 137/80 O2 Sat by Pulse 100 99 Oximetry Chest Pain [facility] [place] [facility] [place] EKG chest x-ray and labs were reviewed. Patient has no acute findings though patient very concerning cardiac symptoms. Patient be admitted for ACS rule out. Disposition Clinical Impression: Chest pain Disposition: ADMITTED IP TO THIS HOSP Condition: Fair Referrals: Natalie Sommers DO [Primary Care Provider] - 1-2 days
--- NOTE | 2020-07-10 08:59 | XR ---
EXAMINATION TYPE: XR chest 2V DATE OF EXAM: 07/10/2020 CLINICAL HISTORY: Chest pain TECHNIQUE: Frontal and lateral views of the chest are obtained. COMPARISON: 09/04/2017 chest radiograph FINDINGS: The cardiomediastinal silhouette is within normal limits for size. Pulmonary vasculature i s normal. There is no focal air space opacity, pleural effusion, or pneumothorax seen. The osseous st ructures are intact. IMPRESSION: No acute cardiopulmonary process.
[2020-07-10 09:00] LABS: ALT 16 U/L (4-34); AST 18 U/L (14-36); African American GFR (CKD) >90 (>60 ml/min/1.73 sqM); Albumin 4.4 g/dL (3.5-5.0); Alkaline Phosphatase 100 U/L (38-126); Anion Gap 11 mmol/L; Blood Urea Nitrogen 15 mg/dL (7-17); Calcium 9.3 mg/dL (8.4-10.2); Carbon Dioxide 25 mmol/L (22-30); Chloride 104 mmol/L (98-107); Glucose 121 mg/dL (74-99); Magnesium 2.1 mg/dL (1.6-2.3); Non-African American GFR(CKD) 81 (>60 ml/min/1.73 sqM); Potassium 3.9 mmol/L (3.5-5.1); Sodium 140 mmol/L (137-145); Total Bilirubin 0.6 mg/dL (0.2-1.3); Total Protein 7.3 g/dL (6.3-8.2)
[2020-07-10 09:10] LABS: D-Dimer 0.23 mg/L FEU (<0.60); INR 0.9 (<1.2); Prothrombin Time 9.7 sec (9.0-12.0)
[2020-07-10 09:12] LABS: Partial Thromboplastin Time 21.8 sec (22.0-30.0)
[2020-07-10] MEDS ORDERED: HEPARIN SOD,PORK IN 0.45% NACL 25,000 UNIT in 0.45% NACL 1 250ML.BAG IV SCH (09:30)
[2020-07-10] MEDS ORDERED: NITROGLYCERIN SL TABS 0.4 MG TAB SUBLINGUAL PRN (09:30)
[2020-07-10] MEDS ORDERED: HEPARIN SODIUM,PORCINE 5,000 UNIT/ML 1 ML VIAL IV ONE (09:30)
[2020-07-10] MEDS ORDERED: HEPARIN SODIUM,PORCINE 5,000 UNIT/ML 1 ML VIAL IV PRN (09:30)
[2020-07-10] MEDS ORDERED: ALPRAZolam 0.5 MG TAB PO STA (11:37)
--- NOTE | 2020-07-10 14:02 | P.CRDCN ---
History of Present Illness History of present illness: This is Dr. Witt dictating a consult on this patient The patient was interviewed and examined IMPRESSION / ASSESSMENT: Recurrent atypical burning discomfort in the chest Family history of CAD and diabetes PLAN: Third set of troponins line repeat ECG tomorrow If these are normal she may go home and follow-up in the as an outpatient HPI Patient is a 3 episodes of a burning discomfort in the chest that goes up with her neck and onto such episodes she was woken up in the middle]. No palpitations no dizziness lightheadedness nausea no other associated symptoms it lasted for 3-6 minutes. His 1 episode where she was sitting at around 11:00 in the evening and had the episode and this occurred about 2 weeks back Otherwise she can walk up 65 steps [place] No dizziness lightheadedness no palpitations ROS: No fever chills or rigors, no cough, phlegm or expectoration, no nausea, vomiting or diarrhea, no hematuria, dysuria, no musculoskeletal complaints, no strokes or seizures, no skin lesions. EXAMINATION: Afebrile 98.7F, pulse rate in the 90s blood pressure 133/64 mmHg Breath sounds are clear no rhonchi no crackles Heart sounds S1 and S2 normal no murmurs or gallops or rub Abdomen is soft nontender Extended is warm no edema REVIEW OF LABS, ECG & MEDICAL DATA Labs are reviewed white count 5.3 hemoglobin 14.8 platelet count 139,000 She has a history of low platelets She also has a history of degenerative disorder for blood clotting. D-dimer is normal She denies diabetes She has a strong family history of coronary artery disease and diabetes 2 cardiac enzymes are normal ECG shows sinus rhythm with normal ST segments Past Medical History Past Medical History: Thyroid Disorder Additional Past Medical History / Comment(s): vertigo, ARRYTHMIA DURING A SURGICAL PROCEDURE, LOW THYROID, DIVERTICULOUSIS History of Any Multi-Drug Resistant Organisms: None Reported Past Surgical History: Hernia Repair Additional Past Surgical History / Comment(s): 5 D&C, HERNIA REPAIR ', STRESS TEST 3-4 YEARS AGO IT WAS NORMAL, Past Psychological History: Anxiety Smoking Status: Never smoker Past Alcohol Use History: None Reported Past Drug Use History: None Reported - Past Family History Mother Family Medical History: Hypertension Additional Family Medical History / Comment(s): STROKE HTN, SKIN CA, HEART MURMER Father Family Medical History: Hypertension Additional Family Medical History / Comment(s): DIVERTICULOUSIS, Brother(s) Family Medical History: Diabetes Mellitus Additional Family Medical History / Comment(s): ALL HER BROTHERS AND SISITERS HAVE DIABETES, BROTHER HAS HEART CONDITION, Medications and Allergies Home Medications Medication Instructions Recorded Confirmed Type ALPRAZolam [Xanax] 0.5 mg PO BID PRN 07/10/20 07/10/20 History 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,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] 45 mg PO DAILY 07/10/20 07/10/20 History Allergies Allergy/AdvReac Type Severity Reaction Status Date / Time codeine Allergy Mild Rash/Hives Verified 07/10/20 09:50 garlic Allergy Rash/Hives Verified 07/10/20 09:50 TALWIN AdvReac Hallucinati Uncoded 07/10/20 08:20 ons Physical Exam Vitals: Vital Signs Temp Pulse Pulse Resp BP Pulse Ox 07/10/20 09:45 98.7 F 96 18 133/64 99 07/10/20 09:00 99 18 137/80 99 07/10/20 08:25 97 07/10/20 08:17 98.2 F 96 16 151/88 100 Intake and Output 07/09/20 07/10/20 07/10/20 22:59 06:59 14:59 Other: Weight 65.771 kg Results 07/10/20 08:41 07/10/20 08:41 Cardiac Enzymes 07/10/20 07/10/20 07/10/20 Range/Units 08:41 08:41 11:59 AST 18 (14-36) U/L Troponin I <0.012 <0.012 (0.000-0.034) ng/mL Coagulation 07/10/20 Range/Units 08:41 PT 9.7 (9.0-12.0) sec APTT 21.8 L (22.0-30.0) sec CBC 07/10/20 Range/Units 08:41 WBC 5.3 (3.8-10.6) k/uL RBC 4.90 (3.80-5.40) m/uL Hgb 14.8 (11.4-16.0) gm/dL Hct 42.9 (34.0-46.0) % Plt Count 139 L (150-450) k/uL Comprehensive Metabolic Panel 07/10/20 Range/Units 08:41 Sodium 140 (137-145) mmol/L Potassium 3.9 (3.5-5.1) mmol/L Chloride 104 (98-107) mmol/L Carbon Dioxide 25 (22-30) mmol/L BUN 15 (7-17) mg/dL Creatinine 0.78 (0.52-1.04) mg/dL Glucose 121 H (74-99) mg/dL Calcium 9.3 (8.4-10.2) mg/dL AST 18 (14-36) U/L ALT 16 (4-34) U/L Alkaline Phosphatase 100 (38-126) U/L Total Protein 7.3 (6.3-8.2) g/dL Albumin 4.4 (3.5-5.0) g/dL Current Medications Generic Name Dose Route Start Last Admin Trade Name Freq PRN Reason Stop Dose Admin Aspirin 81 mg 07/11/20 09:00 Aspirin 325 Mg Tab PO DAILY [facility] Heparin Sodium (Porcine) 0 unit 07/10/20 09:30 Heparin Sodium,Porcine 5,000 Unit/Ml 1 Ml Vial IV Q6HR PRN Low PTT Protocol Heparin Sodium/Sodium Chloride 250 mls @ 7.893 mls/hr 07/10/20 09:30 07/10/20 09:44 25,000 unit/ Sodium Chloride IV Not Given .Q24H LU Protocol 12 UNITS/KG/HR Nitroglycerin 0.4 mg 07/10/20 09:30 Nitroglycerin Sl Tabs 0.4 Mg Tab SUBLINGUAL Q5M PRN Chest Pain Intake and Output 07/09/20 07/10/20 07/10/20 22:59 06:59 14:59 Other: Weight 65.771 kg Patient Weight 07/11/20 06:59 Weight 65.771 kg 07/10/20 08:41 07/10/20 08:41
--- NOTE | 2020-07-10 14:16 | ECHOF ---
Referral Reason:chest pain MEASUREMENTS -------- HEIGHT: 167.6 cm WEIGHT: 65.8 kg BP: 137/80 IVSd: 1.0 cm (0.6 - 1.1) LVIDd: 3.6 cm (3.9 - 5.3) LVPWd: 1.0 cm (0.6 - 1.1) IVSs: 1.5 cm LVIDs: 2.2 cm LVPWs: 1.3 cm LA Diam: 2.4 cm (2.7 - 3.8) RVIDd: 2.7 cm (< 3.3) LAESV Index (A-L): 12.25 ml/m Ao Diam: 2.3 cm (2.0 - 3.7) AV Cusp: 1.8 cm (1.5 - 2.6) EPSS: 0.3 cm MV E Jose: 0.84 m/s MV DecT: 222 ms MV A Jose: 0.91 m/s MV E/A Ratio: 0.93 MV EF SLOPE: 81.17 mm/s (70 - 150) MV EXCURSION: 17.44 mm (> 18.000) FINDINGS -------- Sinus rhythm. This was a technically adequate study. The left ventricular size is normal. Left ventricular wall thickness is normal. Overall left vent ricular systolic function is normal with, an EF between 60 - 65 %. The right ventricle is normal in size. Normal LA size by volume 22+/-6 ml/m2. The right atrium is normal in size. Interatrial and interventricular septum intact. The aortic valve is trileaflet and appears structurally normal. The mitral valve is normal. The tricuspid valve appears structurally normal. Trace/mild (physiologic) pulmonic regurgitation. The aortic root size is normal. Normal inferior vena cava with normal inspiratory collapse consistent with estimated right atrial pre ssure of 5 mmHg. There is no pericardial effusion. CONCLUSIONS -------- 1. The left ventricular size is normal. 2. Left ventricular wall thickness is normal. 3. Overall left ventricular systolic function is normal with, an EF between 60 - 65 %. 4. Trace/mild (physiologic) pulmonic regurgitation. 5. There is no pericardial effusion. CLOTHING MANAGER: Jillian Kinsey [facility]
[2020-07-10 14:48] VITALS: RESP 16
[2020-07-10] MEDS ORDERED: ALPRAZolam 0.5 MG TAB PO PRN (15:03)
--- NOTE | 2020-07-10 15:03 | P.HPIM ---
History of Present Illness H&P Date: 07/10/20 Chief Complaint: Chest pain Mrs. Brar is a 65-year-old female with a past medical history of hypothyroidism, diverticulosis, vertigo coming in with a chief complaint of ch est pain. Patient states that this morning she woke up with a burning sensation in the midsternal area. Patient denies having any nausea vomiting or diaphoresis at the time when she had the chest pain. Patient denies having any orthopnea PND or lower extremity swelling. She mentions that she had couple of episodes like this in the past 1 week. Patient states that when she checked her pulse ox was normal at 100% but her heart rate was showing 45 and then it was back to normal. Since admission to the hospital her heart rate has been within normal limits. Patient denies having any fevers chills or rigors. No cough or difficulty in breathing. Denies having any nausea, abdominal pain, nausea vomiting or diarrhea. No dysuria or hematuria. In the ER patient had EKG done showing sinus tachycardia with heart rate around 100/m. Chest x-ray is negative for any acute cardiac coronary process. Her labs showed white count of 5.3, hemoglobin 14.8, platelets 139. PT 9.7, INR 0.9. Sodium 140, pretension 3.9. Calcium 9.3, magnesium 2.1, troponin less than 0.0122. Review of Systems REVIEW OF SYSTEMS: PSYCH: No history of anxiety or depression NEURO:No c/o weakness of the extremties, No facial droop, No speech abnormalities. VASCULAR: no edema HEMATOLOGIC: No history of easy bleeding and bruising . No recent infections . RESPIRATORY: No cough, No SOB, No chest discomfort. IMMUNE: No infections INTEGUMENT: no rashes OPHTHALMOLOGIC: No blurry vision and no eye discharge : No dysuria or hematuria CARDIAC: No orthopnea or PND. MUSCULOSKELETAL : No Aches or pains in the joints or muscles. GI: No abdominal pain, Nausea or vomiting. No constipation or diarrhea. Past Medical History Past Medical History: Thyroid Disorder Additional Past Medical History / Comment(s): vertigo, ARRYTHMIA DURING A SURGICAL PROCEDURE, LOW THYROID, DIVERTICULOUSIS History of Any Multi-Drug Resistant Organisms: None Reported Past Surgical History: Hernia Repair Additional Past Surgical History / Comment(s): 5 D&C, HERNIA REPAIR '89, STRESS TEST 3-4 YEARS AGO IT WAS NORMAL, Past Psychological History: Anxiety Smoking Status: Never smoker Past Alcohol Use History: None Reported Past Drug Use History: None Reported - Past Family History Mother Family Medical History: Hypertension Additional Family Medical History / Comment(s): STROKE HTN, SKIN CA, HEART MURMER Father Family Medical History: Hypertension Additional Family Medical History / Comment(s): DIVERTICULOUSIS, Brother(s) Family Medical History: Diabetes Mellitus Additional Family Medical History / Comment(s): ALL HER BROTHERS AND SISITERS HAVE DIABETES, BROTHER HAS HEART CONDITION, Medications and Allergies Home Medications Medication Instructions Recorded Confirmed Type ALPRAZolam [Xanax] 0.5 mg PO BID PRN 07/10/20 07/10/20 History 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,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 Thyroid] 45 mg PO DAILY 07/10/20 07/10/20 History Allergies Allergy/AdvReac Type Severity Reaction Status Date / Time codeine Allergy Mild Rash/Hives Verified 07/10/20 09:50 garlic Allergy Rash/Hives Verified 07/10/20 09:50 TALWIN AdvReac Hallucinati Uncoded 07/10/20 08:20 ons Physical Exam Vitals: Vital Signs Temp Pulse Pulse Resp BP BP Pulse Ox 07/10/20 11:00 98.8 F 69 16 135/68 98 07/10/20 09:45 98.7 F 96 18 133/64 99 07/10/20 09:00 99 18 137/80 99 07/10/20 08:25 97 07/10/20 08:17 98.2 F 96 16 151/88 100 Intake and Output 07/09/20 07/10/20 07/10/20 22:59 06:59 14:59 Other: # Voids 2 Weight 65.771 kg PHYSICAL EXAM GEN. APPEARANCE: alert, in no apparent distress HEENT: No pallor, no icterus. No JVD. RESPIRATORY EXAM: Bilateral breath sounds are positive. No wheeze or crackles. CARDIOVASCULAR EXAM: S1 and S2 heard. No additional sounds. GI/ABDOMINAL EXAM: Abdomen is soft nontender no organomegaly. Bowel sounds within normal limits EXTREMITIES EXAM: No edema peripheral pulses are felt NEUROLOGICAL EXAM: alert, oriented X3, grossly normal no focal deficits PSYCHIATRIC EXAM: normal affect, normal mood SKIN EXAM: warm, dry, intact, normal color. Absent: rash Results CBC & Chem 7: 07/10/20 08:41 07/10/20 08:41 Labs: Abnormal Lab Results - Last 24 Hours (Table) 07/10/20 07/10/20 07/10/20 Range/Units 08:41 08:41 08:41 Plt Count 139 L (150-450) k/uL APTT 21.8 L (22.0-30.0) sec Glucose 121 H (74-99) mg/dL Thrombosis Risk Factor Assmnt - Choose All That Apply Each Risk Factor Represents 2 Points: Age 61-74 years Thrombosis Risk Factor Assessment Total Risk Factor Score: 2 Thrombosis Risk Factor Assessment Level: Low Risk Assessment and Plan Assessment: ASSESSMENT Atypical chest pain Hypothyroidism Chronic thrombocytopenia History of diverticulosis History of hernia repair History of anxiety PLAN: Patient is admitted for ACS rule out, will get serial troponins and EKG. Cardiology on board and following the patient. Patient restarted on her home medications. Further recommendations to follow depending on the progress of the patient.
[2020-07-10] MEDS ORDERED: THYROID, PORK 30 MG TAB PO SCH (15:15)
[2020-07-10 17:18] VITALS: BP 113/75; PULSE 87; TEMP 98
[2020-07-11 00:05] LABS: Hemoglobin A1C 5.3 % (4.0-6.0)
[2020-07-11] MEDS ORDERED: ASPIRIN 81 MG PO SCH (09:00)
[2020-07-11] MEDS ORDERED: ASPIRIN 325 MG TAB PO SCH (09:00)
--- NOTE | 2020-07-12 15:36 | P.DS ---
Providers Date of admission: 07/10/20 09:37 Expected date of discharge: 07/10/20 Attending physician: Ne Jonas Consults: 07/10/20 09:30 Consult Physician Urgent Consulting Provider: Jose Witt Consult Reason/Comments: chest pain Do you want consulting provider notified?: Yes Primary care physician: Natalie Cruz [facility] Course: Mrs. Brar is a 65-year-old female with a past medical history of hypothyroidism, diverticulosis, vertigo coming in with a chief complaint of chest pain. Patient states that this morning she woke up with a burning sensation in the midsternal area. Patient denies having any nausea vomiting or diaphoresis at the time when she had the chest pain. Patient denies having any orthopnea PND or lower extremity swelling. She mentions that she had couple of episodes like this in the past 1 week. Patient states that when she checked her pulse ox was normal at 100% but her heart rate was showing 45 and then it was back to normal. Since admission to the hospital her heart rate has been within normal limits. Patient denies having any fevers chills or rigors. No cough or difficulty in breathing. Denies having any nausea, abdominal pain, nausea vomiting or diarrhea. No dysuria or hematuria. In the ER patient had EKG done showing sinus tachycardia with heart rate around 100/m. Chest x-ray is negative for any acute cardiac coronary process. Her labs showed white count of 5.3, hemoglobin 14.8, platelets 139. PT 9.7, INR 0.9. Sodium 140, pretension 3.9. Calcium 9.3, magnesium 2.1, troponin less than 0.0122. Hospital course: Patient had 3 troponins that have been negative. She is cleared by cardiology to be discharged home, if a third troponin is within normal limits. Patient was very eager to go home. She promised that she would follow up as outpatient with cardiology for further workup. So the patient is being discharged home and she wanted to go. DISCHARGE DIAGNOSIS Atypical chest pain Hypothyroidism Chronic thrombocytopenia History of diverticulosis History of hernia repair History of anxiety Follow-up: Patient is advised to follow up With her PCP Dr. Cruz in 2-[address] Rhoades and in 1 week time. Patient Condition at Discharge: Fair Plan - Discharge Summary Discharge Rx Participant: No New Discharge Prescriptions: Continue Thyroid,Pork [H[employer] Thyroid] 45 mg PO DAILY ALPRAZolam [Xanax] 0.5 mg PO BID PRN PRN Reason: Anxiety Discharge Medication List ALPRAZolam [Xanax] 0.5 mg PO BID PRN 07/10/20 [History] Thyroid,Pork [Hydraulic [employer] Bl[employer] Thyroid] 45 mg PO DAILY 07/10/20 [History] Follow up Appointment(s)/Referral(s): Jose Witt MD [STAFF PHYSICIAN] - 2 Weeks (Follow-up with Dr. Witt/Karla Muro/Marivel Obregon) Natalie Cruz DO [Primary Care Provider] - 1-2 days Patient Instructions/Handouts: Chest Pain (DC) Discharge Disposition: HOME SELF-CARE
== END 2020-07-10 18:45 | disposition home or self-care (01) ==
LOC: EC 08:14 → 3NCARDOBS 09:37
PROVIDERS: ADMIT Internal Medicine; ATTEND Internal Medicine
DX: R07.89 Other chest pain (principal); E03.9 Hypothyroidism, unspecified; D69.6 Thrombocytopenia, unspecified; F41.9 Anxiety disorder, unspecified; R00.0 Tachycardia, unspecified; R06.02 Shortness of breath; M54.9 Dorsalgia, unspecified; Z87.19 Personal history of other diseases of the digestive system; R42 Dizziness and giddiness; Z79.899 Other long term (current) drug therapy; Z79.890 Hormone replacement therapy; Z88.5 Allergy status to narcotic agent; Z91.018 Allergy to other foods; Z82.49 Family history of ischemic heart disease and other diseases of the circulatory system; Z82.3 Family history of stroke; Z80.8 Family history of malignant neoplasm of other organs or systems; Z83.79 Family history of other diseases of the digestive system; Z83.3 Family history of diabetes mellitus
CPT/HCPCS: 99285; 36415; 93005; 93306; 85379; 80053; 83690; 83735; 84484; 85025; 85610; 85730; 83036; 71046; G0378

== ENCOUNTER 2021-12-21 10:35 | Day surgery (SDC) | payer MEDICARE ==
[2021-12-16 13:59] VITALS: BMI 22.8
[~2021-12-21 10:35] MED LIST: LACTATED RINGERS 1,000 ML IV SCH
[2021-12-21 11:11] VITALS: RESP 16; TEMP 96.7
[2021-12-21] MEDS ORDERED: ONDANSETRON 4 MG/2 ML VIAL ONE (11:20)
[2021-12-21] MEDS ORDERED: ONDANSETRON 4 MG/2 ML VIAL IVP ONE (11:24)
[2021-12-21] MEDS ORDERED: SCOPOLAMINE 1.5MG/72HR PATCH TRANSDERM ONE (11:24)
[2021-12-21] MEDS ORDERED: fentaNYL (PF) 50 MCG/ML 2 ML AMP ONE (11:41)
[2021-12-21] MEDS ORDERED: PROPOFOL 10 MG/ML 20 ML VIAL IV ONE (11:41)
[2021-12-21] MEDS ORDERED: MIDAZOLAM 2 MG/2 ML VIAL ONE (11:41)
--- NOTE | 2021-12-21 12:06 | P.PCN ---
Date of Procedure: 12/21/21 Procedure(s) Performed: Brief history: Patient is a pleasant 66-year-old white female scheduled for an elective upper endoscopy as well as colonoscopy as a part of evaluation of GERD and screening for colon cancer. Procedure performed: Esophagogastroduodenoscopy with biopsy Colonoscopy Preoperative diagnosis: GERD Screening for colon cancer Anesthesia: MAC Procedure: After informed consent was obtained from the patient was brought into the endoscopy unit and IV sedation was administered by anesthesia under continuous monitoring. Initially upper endoscopy was done. The Olympus GF 160 video endoscope was inserted inserted into the mouth and esophagus intubated without any difficulty and was gradually advanced into the stomach and duodenum and carefully examined. The bulb and second part of the duodenum appeared normal. The scope was then withdrawn into the stomach adequately insufflated with air and upon careful examination the antrum had mild gastritis and biopsies were done from this area. The body, cardia and fundus appeared normal. The scope was then withdrawn into the esophagus. The GE junction was located at 40 cm to the incisors. It appeared regular with no erythema erosions or ulcerations. Rest of the esophagus appeared normal. Patient tolerated the procedure well. At this time the patient continued to remain sedation. Initial digital rectal examination was normal. Olympus CF 160 video colonoscope was then inserted into the rectum and gradually advanced to the cecum without any difficulty. Careful examination was performed as the scope was gradually being withdrawn. The prep was excellent. The cecum, ascending colon, transverse colon, descending colon, sigmoid colon and rectum appeared normal. Scattered sigmoid diverticulosis seen. Retroflexion was performed in the rectum and no lesions were noted. Patient tolerated the procedure well. Impression: 1. Upper endoscopy revealed minimal antral gastritis but no evidence of esophagitis or Knox's esophagus 2. Colonoscopy was within normal limits with no evidence of colorectal neoplasia. Scattered sigmoid diverticulosis. Recommendations: Findings of this examination were discussed with the patient as well as her family. She was advised to follow with the biopsy results. She will continue with diet modifications and use [id number] antacids as needed. Recommend a repeat colonoscopy in 10 years.
[2021-12-21 12:39] VITALS: BP 113/57; PULSE 87
== END 2021-12-21 12:58 | disposition home or self-care (01) ==
LOC: ORWHC2ENDO 10:35
PROVIDERS: ATTEND Internal Medicine Gastroenterology
DX: Z12.11 Encounter for screening for malignant neoplasm of colon (principal); K29.50 Unspecified chronic gastritis without bleeding; K57.30 Diverticulosis of large intestine without perforation or abscess without bleeding; E07.9 Disorder of thyroid, unspecified; Z98.890 Other specified postprocedural states; Z79.899 Other long term (current) drug therapy; F41.9 Anxiety disorder, unspecified; Z88.5 Allergy status to narcotic agent
CPT/HCPCS: 88305; 43239; J2250; J2405; J3010; J2704; G0121

== ENCOUNTER → 2022-10-16 | Outpatient (CLI) | payer MEDICARE, OTHER ==
--- NOTE | 2022-10-16 21:21 | MR ---
EXAMINATION TYPE: MR lumbar spine wo/w con DATE OF EXAM: 10/16/2022 7:31 PM COMPARISON: None. CLINICAL INDICATION:Female, 67 years old with history of R53.1 WEAKNESS; TECHNIQUE: Multi planar, multi sequence imaging was performed utilizing: T1-weighted, T2-weighted, a nd turbo inversion recovery imaging of the lumbar spine. IV Contrast: 6.5 cc Gadavist. None. FINDINGS: Alignment: The lumbar vertebral bodies have preserved heights and alignment. Cord: The conus medullaris and the distal spinal cord appear unremarkable with regards to their signa l intensity and morphology. Bones/Discs: Low T1/T2 signal lesions are seen within the spine. Example includes a L2 9 mm lesion an d L1 11 mm lesion. Post contrast imaging demonstrates enhancement L1-L2: No evidence of significant spinal canal stenosis or neural foraminal stenosis. L2-L3: Disc bulge and facet joint arthropathy without significant spinal canal and mild bilateral zeke ral foraminal stenosis. L3-L4: Disc bulge and facet joint arthropathy result in mild spinal canal and mild bilateral neural f oraminal stenosis. L4-L5: No evidence of significant spinal canal stenosis. Facet joint arthropathy with mild bilateral neural foraminal stenosis. L5-S1: No evidence of significant spinal canal stenosis. Facet joint arthropathy with mild bilateral neural foraminal stenosis. Other findings: Perineural cysts are seen bilaterally in the sacrum. Colonic diverticulosis. IMPRESSION: 1. Suspicious osseous lesions in L1 and L2 vertebral bodies which enhance. Correlate with patient's history of malignancy, consider nuclear medicine bone scan. 2. The level disc degeneration changes most pronounced at L1-L3. Scattered mild multilevel neural fo raminal stenosis.
== END | disposition home or self-care (01) ==
LOC: RADMRIMAIN 20:15
PROVIDERS: ATTEND Neurological Surgery
DX: M51.36 Other intervertebral disc degeneration, lumbar region (principal); M48.061 Spinal stenosis, lumbar region without neurogenic claudication; M99.73 Connective tissue and disc stenosis of intervertebral foramina of lumbar region; R53.1 Weakness
CPT/HCPCS: 72158; A9585

== ENCOUNTER → 2022-10-23 | Outpatient (CLI) | payer MEDICARE, OTHER ==
--- NOTE | 2022-10-23 08:00 | MR ---
EXAMINATION TYPE: MR cspine/tspine wo con DATE OF EXAM: 10/23/2022 7:29 AM CLINICAL INDICATION:Female, 67 years old with history of R53.1 weakness; Weakness, back pain, left le g pain, numbness COMPARISON: Lumbar spine MRI 10/16/2022. TECHNIQUE: Multi planar, multi sequence imaging was performed utilizing: T1-weighted, T2-weighted, a nd turbo inversion recovery imaging of the cervical and thoracic spine. MR contrast: IV Contrast: None. FINDINGS: CERVICAL: Alignment: The cervical vertebral bodies have preserved heights. Cervical alignment is straightened. Bones: No abnormal bone edema seen on inversion recovery sequences Multilevel degenerative disc dise ase is noted and most pronounced at the C4-C7 vertebral levels with mild osteophyte formation and dis c space narrowing. Cord: The spinal cord is unremarkable with regards to their signal intensity and morphology. Discs: Scattered disc desiccation throughout the spine. C2-C3: No significant disc pathology. The spinal canal is patent. No neural foraminal stenosis. C3-C4: No significant disc pathology. The spinal canal is patent. No neural foraminal stenosis. C4-C5: A disc osteophyte complex is present which minimally narrows the ventral subarachnoid space. Bilateral facet and uncovertebral joint arthropathy are present with mild right neural foraminal barb nosis. The left neural foramen is patent. C5-C6: A disc osteophyte complex is present which minimally narrows the ventral subarachnoid space. Bilateral facet and uncovertebral joint arthropathy are present with moderate right and mild left ne ural foraminal stenosis. C6-C7: A disc osteophyte complex is present which minimally narrows the ventral subarachnoid space. Bilateral facet and uncovertebral joint arthropathy are present with mild bilateral neural foraminal stenosis. C7-T1: No significant disc pathology. The spinal canal is patent. No neural foraminal stenosis. THORACIC: T7-T8: Mild left central disc protrusion without significant spinal canal stenosis. The neural forame n and spinal canal are patent. T12-L1: Right central disc protrusion without significant spinal canal or neural foraminal stenosis. The remainder of the neural foramen and spinal canal levels are patent. Thoracic spinal cord signal i s maintained. Other: Thyroid gland nodule in the left chest partially visualized. This nodule measures at least 1.2 cm. IMPRESSION: 1. No definitive evidence of significant spinal canal stenosis. 2. Multilevel disc degeneration with associated osteoarthritic changes worse in the cervical spine w ith moderate C5-C6 neural foraminal stenosis. 3. Similar right central T12-L1 disc herniation and a left central T7-T8 disc herniation without sign ificant spinal canal or neural foraminal stenosis. 4. Left thyroid gland nodule measuring up to 12 mm. This can be further evaluated with thyroid ultras ound if clinically warranted.
== END | disposition home or self-care (01) ==
LOC: RADMRIMAIN 06:31
PROVIDERS: ATTEND Neurological Surgery
DX: M47.812 Spondylosis without myelopathy or radiculopathy, cervical region (principal); M51.25 Other intervertebral disc displacement, thoracolumbar region; E04.1 Nontoxic single thyroid nodule; M50.322 Other cervical disc degeneration at C5-C6 level; M99.71 Connective tissue and disc stenosis of intervertebral foramina of cervical region
CPT/HCPCS: 72141; 72146

== ENCOUNTER → 2022-11-08 | Outpatient (CLI) | payer MEDICARE ==
--- NOTE | 2022-11-08 12:12 | US ---
EXAMINATION TYPE: US thyroid st tissue head/neck DATE OF EXAM: 11/08/2022 COMPARISON: NONE CLINICAL HISTORY: E04.1 single thyroid nodule. GLAND SIZE: Right Lobe: 4.4 x 3.8 x 1.6 cm Overall Parenchyma: homogenous Left Lobe: 3.4 x 1.5 x 1.4 cm Overall Parenchyma: homogeneous Isthmus Thickness: 0.2 cm NODULES RIGHT: # of nodules measured on right: 1 1. 1.0 X 0.7 x 0.8 cm, mid, No prior ultrasound TIRADS Score: 4 TIRADS Category 4: Moderately Suspicious Composition: Solid or almost completely solid (2 points). Echogenicity: Hypoechoic (2 points). Shape: Wider than tall (0 points). Margin: Smooth (0 points). Echogenic foci: None or large comet-tail artifacts (0 points) Recommendation: If >1.5cm: FNA; If >1cm: Follow up at 1,3,5 years LEFT: # of nodules measured on left: 1 1. 1.6 X 0.7 x 1.0 cm, mid, No prior ultrasound TIRADS Score: 3 TIRADS Category 3: Mildly Suspicious Composition: Solid or almost completely solid (2 points). Echogenicity: Hyperechoic or isoechoic (1 point). Shape: Wider than tall (0 points). Margin: Smooth (0 points). Echogenic foci: None or large comet-tail artifacts (0 points) Recommendation: If >2.5cm: FNA; If >1.5cm: Follow up at 1,3,5 years ISTHMUS: # of nodules measured in the isthmus: 0 Bilateral neck scanned, no evidence of lymphadenopathy. IMPRESSION: Bilateral thyroid nodules with recommendations as described above.
== END | disposition home or self-care (01) ==
LOC: RADUSWWP 11:05
PROVIDERS: ATTEND Obstetrics & Gynecology
DX: E04.2 Nontoxic multinodular goiter (principal)
CPT/HCPCS: 76536

== ENCOUNTER → 2022-11-08 | Outpatient (CLI) | payer MEDICARE ==
--- NOTE | 2022-11-08 19:14 | NM ---
EXAMINATION TYPE: NM bone scan whole body DATE OF EXAM: 11/08/2022 2:59 PM CLINICAL INDICATION:Female, 67 years old with history of R53.1 weakness; COMPARISON: MR lumbar spine 10/16/2022 TECHNIQUE: Intravenous administration 20.5 mCi Tc 99m MDP followed by multiple scintigraphic images o f the appendicular and axial skeleton. Small [id number] thorax and abdominal imaging was also perf ormed and submitted. Images acquired 3 hours post injection. FINDINGS: No abnormal uptake is identified within the appendicular or axial skeleton to suggest metastatic dise ase. MRI lumbar spine L1-L2 vertebral body lesions are not definitively uptake of tracer or demonstr ate photopenia. There is increased uptake within the bilateral shoulder, sternoclavicular, and sacroiliac joints con sistent with degenerative changes. No other photopenic areas or areas of increased activity are ident ified. Physiologic radiotracer activity is demonstrated in the kidneys and bladder. IMPRESSION: 1. Areas seen on prior MRI spine do not demonstrate abnormal radiotracer uptake or photopenia. 2. Nothing to suggest metastatic disease.
== END | disposition home or self-care (01) ==
LOC: RADNMMAIN 10:30
PROVIDERS: ATTEND Neurological Surgery
DX: M79.605 Pain in left leg (principal); R53.1 Weakness
CPT/HCPCS: 78306; A9503